=== PATIENT | female | born 1930 | race Caucasian/White ===

== ENCOUNTER → 2016-10-07 | Outpatient (REF) | payer MEDICARE, MEDICAID ==
[~2016-10-07] MED LIST: /FENO48TA OR; /PANT40TA OR; /SUCR1TA OR; /WARF5TA OR; ALTA5CAP OR; AMLO10TA OR; ASPI81TA PO; ATIV1TAB10 PO; BISA5TA OR; BISA5TAB7 PO; BISO10TA2 OR; BISO5TAB5 PO; COUM1TAB14 PO; CRES40TA OR; CRES40TA PO; DEMA20TA6 PO; DRIS50002 PO; FENO48TA2 PO; FOLI1TAB OR; FOLI1TAB2 PO; FURO40TA2 OR; FURO40TA2 PO; GLIM1TAB OR; GLIM4TAB PO; INSUHUMDS SC; INSULANT SC; INSULIN LANTUS SC; INVO100T PO; JANU100T PO; LASI20TA OR; LOPR100T OR; MISC; MORP1SOL SL; NITR0.4S SL; NITR4TASL SL; NYSTATIN POWDER TOP; OMEP40CA2 PO; PRAD75CA3 PO; RAMI5CA PO; SENN8.6T54 PO; SLOWTAB2 PO; TRAN1.5D2 TD; TUMS500C PO; TYLE325T5 PO; VITAMIN D50000 UNT OR; ZANT150T OR
[2016-10-07 09:42] LABS: ANION GAP 11 MEQ/L (8-16); BLOOD UREA NITROGEN 23 MG/DL (7-18); CALCIUM LEVEL 9.1 MG/DL (8.8-10.2); CARBON DIOXIDE LEVEL 28 MEQ/L (21-32); CHLORIDE LEVEL 105 MEQ/L (98-107); CREATININE FOR GFR 0.59 MG/DL (0.55-1.02); GLOMERULAR FILTRATION RATE > 60.0 (>32); GLUCOSE, FASTING 144 MG/DL (83-110); POTASSIUM SERUM 4.5 MEQ/L (3.5-5.1); SODIUM LEVEL 144 MEQ/L (136-145)
[2016-10-07 09:49] LABS: INR 2.59
== END ==
LOC: SKLAB7 07:00
PROVIDERS: ATTEND Family Medicine
DX: Z51.81 Encounter for therapeutic drug level monitoring (principal); Z79.01 Long term (current) use of anticoagulants; Z86.73 Personal history of transient ischemic attack (TIA), and cerebral infarction without residual deficits

== ENCOUNTER → 2016-10-14 | Outpatient (REF) | payer MEDICARE, MEDICAID ==
[2016-10-14 09:17] LABS: INR 1.89
[2016-10-14 09:38] LABS: ANION GAP 10 MEQ/L (8-16); BLOOD UREA NITROGEN 28 MG/DL (7-18); CALCIUM LEVEL 9.3 MG/DL (8.8-10.2); CARBON DIOXIDE LEVEL 29 MEQ/L (21-32); CHLORIDE LEVEL 105 MEQ/L (98-107); CREATININE FOR GFR 0.66 MG/DL (0.55-1.02); GLOMERULAR FILTRATION RATE > 60.0 (>32); GLUCOSE, FASTING 177 MG/DL (83-110); POTASSIUM SERUM 4.7 MEQ/L (3.5-5.1); SODIUM LEVEL 144 MEQ/L (136-145)
== END ==
LOC: SKLAB7 07:00
PROVIDERS: ATTEND Family Medicine
DX: Z51.81 Encounter for therapeutic drug level monitoring (principal); Z79.01 Long term (current) use of anticoagulants; Z86.73 Personal history of transient ischemic attack (TIA), and cerebral infarction without residual deficits; E11.9 Type 2 diabetes mellitus without complications

== ENCOUNTER → 2016-10-21 | Outpatient (REF) | payer MEDICARE, MEDICAID ==
[2016-10-21 08:49] LABS: INR 2.23
[2016-10-21 09:43] LABS: ANION GAP 9 MEQ/L (8-16); BLOOD UREA NITROGEN 24 MG/DL (7-18); CALCIUM LEVEL 9.1 MG/DL (8.8-10.2); CARBON DIOXIDE LEVEL 31 MEQ/L (21-32); CHLORIDE LEVEL 101 MEQ/L (98-107); CREATININE FOR GFR 0.65 MG/DL (0.55-1.02); GLOMERULAR FILTRATION RATE > 60.0 (>32); GLUCOSE, FASTING 166 MG/DL (83-110); POTASSIUM SERUM 4.6 MEQ/L (3.5-5.1); SODIUM LEVEL 141 MEQ/L (136-145)
== END ==
LOC: SKLAB7 07:00
PROVIDERS: ATTEND Family Medicine
DX: Z51.81 Encounter for therapeutic drug level monitoring (principal); Z79.01 Long term (current) use of anticoagulants; Z86.73 Personal history of transient ischemic attack (TIA), and cerebral infarction without residual deficits; I10 Essential (primary) hypertension

== ENCOUNTER → 2016-10-28 | Outpatient (REF) | payer MEDICARE, MEDICAID ==
[2016-10-28 08:50] LABS: INR 2.16
[2016-10-28 08:59] LABS: ANION GAP 11 MEQ/L (8-16); BLOOD UREA NITROGEN 23 MG/DL (7-18); CALCIUM LEVEL 9.1 MG/DL (8.8-10.2); CARBON DIOXIDE LEVEL 29 MEQ/L (21-32); CHLORIDE LEVEL 103 MEQ/L (98-107); CREATININE FOR GFR 0.67 MG/DL (0.55-1.02); GLOMERULAR FILTRATION RATE > 60.0 (>32); GLUCOSE, FASTING 207 MG/DL (83-110); POTASSIUM SERUM 4.2 MEQ/L (3.5-5.1); SODIUM LEVEL 143 MEQ/L (136-145)
== END ==
LOC: SKLAB7 07:00
PROVIDERS: ATTEND Family Medicine
DX: Z51.81 Encounter for therapeutic drug level monitoring (principal); Z79.01 Long term (current) use of anticoagulants; I48.91 Unspecified atrial fibrillation

== ENCOUNTER → 2016-11-04 | Outpatient (REF) | payer MEDICARE, MEDICAID ==
[2016-11-04 08:44] LABS: INR 2.52
== END ==
LOC: SKLAB7 09:27
PROVIDERS: ATTEND Family Medicine
DX: Z51.81 Encounter for therapeutic drug level monitoring (principal); Z79.01 Long term (current) use of anticoagulants; Z86.73 Personal history of transient ischemic attack (TIA), and cerebral infarction without residual deficits

== ENCOUNTER → 2016-11-11 | Outpatient (REF) | payer MEDICARE, MEDICAID ==
[2016-11-11 08:13] LABS: INR 2.47
== END | disposition home or self-care (01) ==
LOC: SKLAB7 08:00
PROVIDERS: ATTEND Family Medicine
DX: Z51.81 Encounter for therapeutic drug level monitoring (principal); Z79.01 Long term (current) use of anticoagulants

== ENCOUNTER → 2016-11-18 | Outpatient (REF) | payer MEDICARE, MEDICAID ==
[2016-11-18 09:37] LABS: INR 2.66
[2016-11-18 10:03] LABS: ANION GAP 12 MEQ/L (8-16); BLOOD UREA NITROGEN 21 MG/DL (7-18); CALCIUM LEVEL 9.2 MG/DL (8.8-10.2); CARBON DIOXIDE LEVEL 28 MEQ/L (21-32); CHLORIDE LEVEL 103 MEQ/L (98-107); GLOMERULAR FILTRATION RATE > 60.0 (>32); GLUCOSE, FASTING 239 MG/DL (83-110); POTASSIUM SERUM 4.3 MEQ/L (3.5-5.1); SODIUM LEVEL 143 MEQ/L (136-145)
== END ==
LOC: SKLAB7 08:00
PROVIDERS: ATTEND Family Medicine
DX: Z51.81 Encounter for therapeutic drug level monitoring (principal); Z79.01 Long term (current) use of anticoagulants; E11.9 Type 2 diabetes mellitus without complications; I10 Essential (primary) hypertension; Z86.73 Personal history of transient ischemic attack (TIA), and cerebral infarction without residual deficits

== ENCOUNTER → 2016-11-25 | Outpatient (REF) | payer MEDICARE, MEDICAID ==
[2016-11-25 08:26] LABS: INR 2.6
== END ==
LOC: SKLAB7 14:08
PROVIDERS: ATTEND Family Medicine
DX: Z51.81 Encounter for therapeutic drug level monitoring (principal); Z79.01 Long term (current) use of anticoagulants; Z86.73 Personal history of transient ischemic attack (TIA), and cerebral infarction without residual deficits

== ENCOUNTER → 2016-12-02 | Outpatient (REF) | payer MEDICARE, MEDICAID ==
[2016-12-02 09:29] LABS: INR 2.77
== END ==
LOC: SKLAB7 10:07
PROVIDERS: ATTEND Family Medicine
DX: Z51.81 Encounter for therapeutic drug level monitoring (principal); Z79.01 Long term (current) use of anticoagulants; Z86.73 Personal history of transient ischemic attack (TIA), and cerebral infarction without residual deficits

== ENCOUNTER → 2016-12-09 | Outpatient (REF) | payer MEDICARE, MEDICAID ==
[2016-12-09 08:21] LABS: INR 3.05
== END ==
LOC: SKLAB7 08:00
PROVIDERS: ATTEND Family Medicine
DX: Z51.81 Encounter for therapeutic drug level monitoring (principal); Z79.01 Long term (current) use of anticoagulants; Z86.73 Personal history of transient ischemic attack (TIA), and cerebral infarction without residual deficits

== ENCOUNTER → 2016-12-16 | Outpatient (REF) | payer MEDICARE, MEDICAID ==
[2016-12-16 09:05] LABS: INR 3.07
== END ==
LOC: SKLAB7 07:00
PROVIDERS: ATTEND Family Medicine
DX: Z51.81 Encounter for therapeutic drug level monitoring (principal); Z79.01 Long term (current) use of anticoagulants; I48.91 Unspecified atrial fibrillation

== ENCOUNTER → 2016-12-23 | Outpatient (REF) | payer MEDICARE, MEDICAID ==
[2016-12-23 09:45] LABS: INR 2.92
== END ==
LOC: SKLAB7 10:09
PROVIDERS: ATTEND Family Medicine
DX: Z51.81 Encounter for therapeutic drug level monitoring (principal); Z79.01 Long term (current) use of anticoagulants; Z86.73 Personal history of transient ischemic attack (TIA), and cerebral infarction without residual deficits

== ENCOUNTER → 2016-12-30 | Outpatient (REF) | payer MEDICARE, MEDICAID ==
[2016-12-30 09:21] LABS: INR 2.49
== END ==
LOC: SKLAB7 09:28
PROVIDERS: ATTEND Family Medicine
DX: Z51.81 Encounter for therapeutic drug level monitoring (principal); Z79.01 Long term (current) use of anticoagulants; Z86.73 Personal history of transient ischemic attack (TIA), and cerebral infarction without residual deficits

== ENCOUNTER → 2017-01-06 | Outpatient (REF) | payer MEDICARE, MEDICAID | LOC: SKLAB7 07:00 | PROVIDERS: ATTEND Family Medicine | DX: Z51.81 Encounter for therapeutic drug level monitoring (principal); Z79.01 Long term (current) use of anticoagulants; Z86.73 Personal history of transient ischemic attack (TIA), and cerebral infarction without residual deficits ==

== ENCOUNTER → 2017-01-13 | Outpatient (REF) | payer MEDICARE, MEDICAID ==
[2017-01-13 09:35] LABS: INR 2.04
== END ==
LOC: SKLAB7 08:00
PROVIDERS: ATTEND Family Medicine
DX: Z51.81 Encounter for therapeutic drug level monitoring (principal); Z79.01 Long term (current) use of anticoagulants; Z86.73 Personal history of transient ischemic attack (TIA), and cerebral infarction without residual deficits

== ENCOUNTER → 2017-01-20 | Outpatient (REF) | payer MEDICARE, MEDICAID ==
[2017-01-20 08:27] LABS: INR 1.84
== END ==
LOC: SKLAB7 07:00
PROVIDERS: ATTEND Family Medicine
DX: Z51.81 Encounter for therapeutic drug level monitoring (principal); Z79.01 Long term (current) use of anticoagulants; I48.91 Unspecified atrial fibrillation

== ENCOUNTER → 2017-01-27 | Outpatient (REF) | payer MEDICARE, MEDICAID ==
[2017-01-27 08:39] LABS: INR 1.86
== END ==
LOC: SKLAB7 07:00
PROVIDERS: ATTEND Family Medicine
DX: Z51.81 Encounter for therapeutic drug level monitoring (principal); Z79.01 Long term (current) use of anticoagulants; Z86.73 Personal history of transient ischemic attack (TIA), and cerebral infarction without residual deficits

== ENCOUNTER → 2017-02-10 | Outpatient (REF) | payer MEDICARE, MEDICAID ==
[2017-02-10 09:07] LABS: BASO % 0.5 % (0.0-1.0); EOS # 0.2 K/mm3 (0.0-0.50); EOS % 4.4 % (0.0-3.0); LARGE UNSTAINED CELL # 0.1 K/mm3 (0.0-0.4); LARGE UNSTAINED CELL % 1.3 % (0.0-4.0); LYMPH # 1.2 K/mm3 (1.5-4.5); LYMPH % 22.1 % (24.0-44.0); MEAN CORPUSCULAR HEMOGLOBIN 31.1 pg (27.0-33.0); MEAN CORPUSCULAR HGB CONC 32.8 g/dl (32.0-36.5); MEAN CORPUSCULAR VOLUME 94.7 fl (80.0-96.0); MONO # 0.3 K/mm3 (0.0-0.8); MONO % 4.6 % (0.0-5.0); NEUTROPHILS # 3.7 K/mm3 (1.8-7.7); NEUTROPHILS % 67.1 % (36.0-66.0); PLATELET COUNT, AUTOMATED 256 k/mm3 (150-450); RED CELL DISTRIBUTION WIDTH 14.3 % (11.5-14.5); WHITE BLOOD COUNT 5.5 K/mm3 (4.0-10.0)
[2017-02-10 09:22] LABS: INR 2.14
[2017-02-10 09:24] LABS: FOLATE 13.3 NG/ML (>5.4)
[2017-02-10 09:32] LABS: ALT/SGPT 37 U/L (12-78); ANION GAP 9 MEQ/L (8-16); BLOOD UREA NITROGEN 24 MG/DL (7-18); CALCIUM LEVEL 8.8 MG/DL (8.8-10.2); CARBON DIOXIDE LEVEL 29 MEQ/L (21-32); CHLORIDE LEVEL 104 MEQ/L (98-107); CHOLESTEROL LEVEL 130 MG/DL (<200); CREATININE FOR GFR 0.66 MG/DL (0.55-1.02); GLOMERULAR FILTRATION RATE > 60.0 (>32); GLUCOSE, FASTING 169 MG/DL (83-110); MAGNESIUM LEVEL 1.7 MG/DL (1.8-2.4); POTASSIUM SERUM 4.4 MEQ/L (3.5-5.1); SODIUM LEVEL 142 MEQ/L (136-145); TRIGLYCERIDES LEVEL 287 MG/DL (<150)
== END ==
LOC: SKLAB7 08:00
PROVIDERS: ATTEND Family Medicine
DX: E11.9 Type 2 diabetes mellitus without complications (principal); E03.9 Hypothyroidism, unspecified; Z79.01 Long term (current) use of anticoagulants

== ENCOUNTER → 2017-02-14 | Outpatient (REF) | payer MEDICARE, MEDICAID | LOC: SKLAB7 22:41 | PROVIDERS: ATTEND Family Medicine | DX: R41.82 Altered mental status, unspecified (principal) ==

== ENCOUNTER → 2017-02-24 | Outpatient (REF) | payer MEDICARE, MEDICAID ==
[2017-02-24 09:41] LABS: INR 2.04
== END ==
LOC: SKLAB7 07:00
PROVIDERS: ATTEND Family Medicine
DX: I48.91 Unspecified atrial fibrillation (principal)

== ENCOUNTER → 2017-03-10 | Outpatient (REF) | payer MEDICARE, MEDICAID ==
[2017-03-10 10:01] LABS: INR 2.27
== END ==
LOC: SKLAB7 08:00
PROVIDERS: ATTEND Family Medicine
DX: Z51.81 Encounter for therapeutic drug level monitoring (principal); Z79.01 Long term (current) use of anticoagulants; Z86.73 Personal history of transient ischemic attack (TIA), and cerebral infarction without residual deficits

== ENCOUNTER → 2017-03-24 | Outpatient (REF) | payer MEDICARE, MEDICAID ==
[2017-03-24 09:13] LABS: INR 1.33
== END ==
LOC: SKLAB7 08:00
PROVIDERS: ATTEND Family Medicine
DX: Z51.81 Encounter for therapeutic drug level monitoring (principal); Z79.01 Long term (current) use of anticoagulants; Z86.73 Personal history of transient ischemic attack (TIA), and cerebral infarction without residual deficits

== ENCOUNTER → 2017-03-30 | Outpatient (REF) | payer MEDICARE, MEDICAID ==
[~2017-03-30] MED LIST changes: -FOLI1TAB2 PO; +FOLI1TAB4 PO
== END ==
LOC: SKLAB3 09:26
PROVIDERS: ATTEND Family Medicine
DX: I63.9 Cerebral infarction, unspecified (principal)

== ENCOUNTER → 2017-03-31 | Outpatient (REF) | payer MEDICARE, MEDICAID ==
[2017-03-31 08:26] LABS: INR 1.35
== END ==
LOC: SKLAB7 07:00
PROVIDERS: ATTEND Family Medicine
DX: Z51.81 Encounter for therapeutic drug level monitoring (principal); Z79.01 Long term (current) use of anticoagulants; Z86.73 Personal history of transient ischemic attack (TIA), and cerebral infarction without residual deficits

== ENCOUNTER → 2017-04-07 | Outpatient (REF) | payer MEDICARE, MEDICAID ==
[2017-04-07 10:00] LABS: INR 1.31
== END ==
LOC: SKLAB7 11:53
PROVIDERS: ATTEND Family Medicine
DX: Z51.81 Encounter for therapeutic drug level monitoring (principal); Z79.01 Long term (current) use of anticoagulants; I48.91 Unspecified atrial fibrillation

== ENCOUNTER → 2017-04-21 | Outpatient (REF) | payer MEDICARE, MEDICAID ==
[2017-04-21 08:20] LABS: INR 1.37
== END ==
LOC: SKLAB7 07:00
PROVIDERS: ATTEND Family Medicine
DX: Z51.81 Encounter for therapeutic drug level monitoring (principal); Z86.73 Personal history of transient ischemic attack (TIA), and cerebral infarction without residual deficits; Z79.899 Other long term (current) drug therapy

== ENCOUNTER → 2017-05-03 | Outpatient (REF) | payer MEDICARE, MEDICAID | LOC: SKLAB7 09:49 | PROVIDERS: ATTEND Family Medicine | DX: Z86.14 Personal history of Methicillin resistant Staphylococcus aureus infection (principal) ==

== ENCOUNTER → 2017-05-05 | Outpatient (REF) | payer MEDICARE, MEDICAID ==
[2017-05-05 08:42] LABS: INR 1.85
== END ==
LOC: SKLAB7 14:10
PROVIDERS: ATTEND Family Medicine
DX: Z51.81 Encounter for therapeutic drug level monitoring (principal); Z79.01 Long term (current) use of anticoagulants; Z86.73 Personal history of transient ischemic attack (TIA), and cerebral infarction without residual deficits

== ENCOUNTER → 2017-05-19 | Outpatient (REF) | payer MEDICARE, MEDICAID ==
[2017-05-19 09:21] LABS: ANION GAP 7 MEQ/L (8-16); BLOOD UREA NITROGEN 25 MG/DL (7-18); CALCIUM LEVEL 9.1 MG/DL (8.8-10.2); CARBON DIOXIDE LEVEL 29 MEQ/L (21-32); CHLORIDE LEVEL 106 MEQ/L (98-107); CREATININE FOR GFR 0.67 MG/DL (0.55-1.02); GLOMERULAR FILTRATION RATE > 60.0 (>32); GLUCOSE, FASTING 190 MG/DL (83-110); INR 1.89; MAGNESIUM LEVEL 1.6 MG/DL (1.8-2.4); POTASSIUM SERUM 4.1 MEQ/L (3.5-5.1); SODIUM LEVEL 142 MEQ/L (136-145)
== END ==
LOC: SKLAB7 08:21
PROVIDERS: ATTEND Family Medicine
DX: E11.9 Type 2 diabetes mellitus without complications (principal); Z86.73 Personal history of transient ischemic attack (TIA), and cerebral infarction without residual deficits; Z86.14 Personal history of Methicillin resistant Staphylococcus aureus infection

== ENCOUNTER → 2017-05-27 | Outpatient (REF) | payer MEDICARE, MEDICAID | LOC: SKLAB7 14:33 | PROVIDERS: ATTEND Family Medicine | DX: Z86.14 Personal history of Methicillin resistant Staphylococcus aureus infection (principal) ==

== ENCOUNTER → 2017-06-02 | Outpatient (REF) | payer MEDICARE, MEDICAID ==
[2017-06-02 08:31] LABS: INR 1.95
== END ==
LOC: SKLAB7 14:40
PROVIDERS: ATTEND Family Medicine
DX: Z51.81 Encounter for therapeutic drug level monitoring (principal); Z79.01 Long term (current) use of anticoagulants; Z86.73 Personal history of transient ischemic attack (TIA), and cerebral infarction without residual deficits

== ENCOUNTER → 2017-06-16 | Outpatient (REF) | payer MEDICARE, MEDICAID ==
[2017-06-16 10:00] LABS: INR 1.92
== END ==
LOC: SKLAB7 07:00
PROVIDERS: ATTEND Family Medicine
DX: Z86.73 Personal history of transient ischemic attack (TIA), and cerebral infarction without residual deficits (principal)

== ENCOUNTER → 2017-06-30 | Outpatient (REF) | payer MEDICARE, MEDICAID ==
[2017-06-30 08:29] LABS: INR 1.86
== END ==
LOC: SKLAB7 11:38
PROVIDERS: ATTEND Family Medicine
DX: Z79.01 Long term (current) use of anticoagulants (principal)

== ENCOUNTER → 2017-07-14 | Outpatient (REF) | payer MEDICARE, MEDICAID ==
[2017-07-14 10:00] LABS: INR 1.91
== END ==
LOC: SKLAB7 14:13
PROVIDERS: ATTEND Family Medicine
DX: Z51.81 Encounter for therapeutic drug level monitoring (principal); Z79.01 Long term (current) use of anticoagulants; Z86.73 Personal history of transient ischemic attack (TIA), and cerebral infarction without residual deficits

== ENCOUNTER → 2017-07-28 | Outpatient (REF) | payer MEDICARE, MEDICAID ==
[2017-07-28 15:20] LABS: INR 1.94
== END ==
LOC: SKLAB7 15:12
PROVIDERS: ATTEND Family Medicine
DX: Z51.81 Encounter for therapeutic drug level monitoring (principal); Z79.01 Long term (current) use of anticoagulants; Z86.73 Personal history of transient ischemic attack (TIA), and cerebral infarction without residual deficits

== ENCOUNTER → 2017-08-11 | Outpatient (REF) | payer MEDICARE, MEDICAID ==
[2017-08-11 11:44] LABS: INR 2.15
== END ==
LOC: SKLAB7 07:00
PROVIDERS: ATTEND Family Medicine
DX: Z86.73 Personal history of transient ischemic attack (TIA), and cerebral infarction without residual deficits (principal)

== ENCOUNTER → 2017-08-26 | Outpatient (REF) | payer MEDICARE, MEDICAID ==
[2017-08-26 07:28] LABS: MEAN CORPUSCULAR HEMOGLOBIN 31.3 pg (27.0-33.0); MEAN CORPUSCULAR HGB CONC 32.4 g/dl (32.0-36.5); MEAN CORPUSCULAR VOLUME 96.6 fl (80.0-96.0); PLATELET COUNT, AUTOMATED 273 10^3/uL (150-450); RED CELL DISTRIBUTION WIDTH 13.8 % (11.5-14.5); WHITE BLOOD COUNT 6.2 10^3/uL (4.0-10.0)
[2017-08-26 07:40] LABS: INR 2.21
[2017-08-26 07:58] LABS: ALT/SGPT 24 U/L (12-78); ANION GAP 7 MEQ/L (8-16); BLOOD UREA NITROGEN 22 MG/DL (7-18); CALCIUM LEVEL 8.9 MG/DL (8.8-10.2); CARBON DIOXIDE LEVEL 29 MEQ/L (21-32); CHLORIDE LEVEL 106 MEQ/L (98-107); CREATININE FOR GFR 0.61 MG/DL (0.55-1.02); GLOMERULAR FILTRATION RATE > 60.0 (>32); GLUCOSE, FASTING 129 MG/DL (83-110); MAGNESIUM LEVEL 1.9 MG/DL (1.8-2.4); POTASSIUM SERUM 4.2 MEQ/L (3.5-5.1); SODIUM LEVEL 142 MEQ/L (136-145)
== END ==
LOC: SKLAB7 07:00
PROVIDERS: ATTEND Family Medicine
DX: I63.9 Cerebral infarction, unspecified (principal); E11.9 Type 2 diabetes mellitus without complications

== ENCOUNTER → 2017-09-09 | Outpatient (REF) | payer MEDICARE, MEDICAID ==
[2017-09-09 08:56] LABS: INR 1.94
== END ==
LOC: SKLAB7 08:02
PROVIDERS: ATTEND Family Medicine
DX: I63.9 Cerebral infarction, unspecified (principal)

== ENCOUNTER → 2017-09-16 | Outpatient (REF) | payer MEDICARE, MEDICAID ==
[2017-09-16 08:08] LABS: INR 2.3
== END ==
LOC: SKLAB7 07:00
PROVIDERS: ATTEND Family Medicine
DX: I48.91 Unspecified atrial fibrillation (principal)

== ENCOUNTER → 2017-09-22 | Outpatient (REF) | payer MEDICARE, MEDICAID ==
[2017-09-22 09:33] LABS: INR 1.72
== END ==
LOC: SKLAB7 07:00
PROVIDERS: ATTEND Family Medicine
DX: Z51.81 Encounter for therapeutic drug level monitoring (principal); Z79.01 Long term (current) use of anticoagulants

== ENCOUNTER → 2017-09-28 | Outpatient (REF) | payer MEDICARE, MEDICAID | LOC: SKLAB7 22:16 | DX: R41.82 Altered mental status, unspecified (principal); R09.81 Nasal congestion ==

== ENCOUNTER → 2017-09-28 | Outpatient (REF) | payer MEDICARE, MEDICAID ==
[2017-09-28 20:34] LABS: MEAN CORPUSCULAR HEMOGLOBIN 31.8 pg (27.0-33.0); MEAN CORPUSCULAR HGB CONC 31.6 g/dl (32.0-36.5); MEAN CORPUSCULAR VOLUME 100.5 fl (80.0-96.0); PLATELET COUNT, AUTOMATED 275 10^3/uL (150-450); RED CELL DISTRIBUTION WIDTH 13.4 % (11.5-14.5); WHITE BLOOD COUNT 13.2 10^3/uL (4.0-10.0)
[2017-09-28 22:30] LABS: BLOOD UREA NITROGEN 30 MG/DL (7-18); CALCIUM LEVEL 8.7 MG/DL (8.8-10.2); CHLORIDE LEVEL 102 MEQ/L (98-107); CREATININE FOR GFR 0.85 MG/DL (0.55-1.02); GLOMERULAR FILTRATION RATE > 60.0 (>32); GLUCOSE, FASTING 295 MG/DL (83-110); SODIUM LEVEL 139 MEQ/L (136-145)
[2017-09-28 23:23] LABS: ANION GAP 10 MEQ/L (8-16); CARBON DIOXIDE LEVEL 27 MEQ/L (21-32)
[2017-09-28 23:28] LABS: POTASSIUM SERUM 5.2 MEQ/L (3.5-5.1)
== END ==
LOC: SKLAB7 19:48
DX: R09.81 Nasal congestion (principal); R41.82 Altered mental status, unspecified
CPT/HCPCS: 71010

== ENCOUNTER → 2017-10-06 | Outpatient (REF) | payer MEDICARE, MEDICAID ==
[2017-10-06 09:37] LABS: INR 2.23; PROTHROMBIN TIME 25.6 SECONDS (12.4-14.5)
== END ==
LOC: SKLAB7 13:39
DX: Z51.81 Encounter for therapeutic drug level monitoring (principal); Z79.01 Long term (current) use of anticoagulants; Z86.73 Personal history of transient ischemic attack (TIA), and cerebral infarction without residual deficits
CPT/HCPCS: 36415

== ENCOUNTER → 2017-10-13 | Outpatient (REF) | payer MEDICARE, MEDICAID ==
[2017-10-13 09:58] LABS: INR 3.05; PROTHROMBIN TIME 32.9 SECONDS (12.4-14.5)
== END ==
LOC: SKLAB7 07:00
DX: Z51.81 Encounter for therapeutic drug level monitoring (principal); Z79.01 Long term (current) use of anticoagulants
CPT/HCPCS: 36415

== ENCOUNTER → 2017-10-20 | Outpatient (REF) | payer MEDICARE, MEDICAID ==
[2017-10-20 10:19] LABS: INR 2.97; PROTHROMBIN TIME 32.2 SECONDS (12.4-14.5)
== END ==
LOC: SKLAB7 07:00
DX: E11.9 Type 2 diabetes mellitus without complications (principal); I63.9 Cerebral infarction, unspecified
CPT/HCPCS: 36415

== ENCOUNTER → 2017-10-27 | Outpatient (REF) | payer MEDICARE, MEDICAID ==
[2017-10-27 11:19] LABS: PROTHROMBIN TIME 37.7 SECONDS (12.4-14.5)
== END ==
LOC: SKLAB7 07:00
DX: Z79.01 Long term (current) use of anticoagulants (principal)
CPT/HCPCS: 85610

== ENCOUNTER → 2017-11-03 | Outpatient (REF) | payer MEDICARE, MEDICAID ==
[2017-11-03 08:53] LABS: INR 2.11; PROTHROMBIN TIME 24.4 SECONDS (12.4-14.5)
== END ==
LOC: SKLAB7 08:00
DX: I48.91 Unspecified atrial fibrillation (principal)
CPT/HCPCS: 36415

== ENCOUNTER → 2017-11-10 | Outpatient (REF) | payer MEDICARE, MEDICAID ==
[2017-11-10 09:01] LABS: HEMOGLOBIN 13.3 g/dl (12.0-16.0); MEAN CORPUSCULAR HEMOGLOBIN 31.7 pg (27.0-33.0); MEAN CORPUSCULAR HGB CONC 32.4 g/dl (32.0-36.5); MEAN CORPUSCULAR VOLUME 97.6 fl (80.0-96.0); PLATELET COUNT, AUTOMATED 230 10^3/uL (150-450); RED CELL DISTRIBUTION WIDTH 13.3 % (11.5-14.5); WHITE BLOOD COUNT 6.6 10^3/uL (4.0-10.0)
[2017-11-10 09:25] LABS: INR 2.27; PROTHROMBIN TIME 25.9 SECONDS (12.4-14.5)
[2017-11-10 09:38] LABS: ALT/SGPT 21 U/L (12-78); ANION GAP 8 MEQ/L (8-16); BLOOD UREA NITROGEN 22 MG/DL (7-18); CARBON DIOXIDE LEVEL 29 MEQ/L (21-32); CHLORIDE LEVEL 104 MEQ/L (98-107); CREATININE FOR GFR 0.65 MG/DL (0.55-1.30); GLOMERULAR FILTRATION RATE > 60.0 (>32); GLUCOSE, FASTING 164 MG/DL (70-100); MAGNESIUM LEVEL 2.1 MG/DL (1.8-2.4); SODIUM LEVEL 141 MEQ/L (136-145)
[2017-11-10 09:52] LABS: ESTIMATED AVERAGE GLUCOSE 237 MG/DL (60-110); HEMOGLOBIN A1c 9.9 %
== END ==
LOC: SKLAB7 08:00
DX: E11.9 Type 2 diabetes mellitus without complications (principal); E03.9 Hypothyroidism, unspecified; E78.5 Hyperlipidemia, unspecified; Z86.73 Personal history of transient ischemic attack (TIA), and cerebral infarction without residual deficits
CPT/HCPCS: 84460

== ENCOUNTER → 2017-11-17 | Outpatient (REF) | payer MEDICARE, MEDICAID ==
[2017-11-17 09:47] LABS: INR 2.24; PROTHROMBIN TIME 25.6 SECONDS (12.4-14.5)
== END ==
LOC: SKLAB3 06:34
DX: Z79.01 Long term (current) use of anticoagulants (principal)
CPT/HCPCS: 36415

== ENCOUNTER → 2017-11-24 | Outpatient (REF) | payer MEDICARE, MEDICAID ==
[2017-11-24 10:22] LABS: INR 1.95; PROTHROMBIN TIME 22.9 SECONDS (12.4-14.5)
== END ==
LOC: SKLAB7 07:00
DX: Z79.01 Long term (current) use of anticoagulants (principal)
CPT/HCPCS: 36415

== ENCOUNTER → 2017-12-01 | Outpatient (REF) | payer MEDICARE, MEDICAID ==
[2017-12-01 08:49] LABS: INR 2.01; PROTHROMBIN TIME 23.5 SECONDS (12.4-14.5)
== END ==
LOC: SKLAB7 07:00
DX: Z79.01 Long term (current) use of anticoagulants (principal)
CPT/HCPCS: 36415

== ENCOUNTER → 2017-12-15 | Outpatient (REF) | payer MEDICARE, MEDICAID ==
[2017-12-15 08:46] LABS: INR 2.61
== END ==
LOC: SKLAB7 07:00
DX: Z79.01 Long term (current) use of anticoagulants (principal)
CPT/HCPCS: 36415

== ENCOUNTER → 2017-12-22 | Outpatient (REF) | payer MEDICARE, MEDICAID ==
[2017-12-22 10:53] LABS: INR 2.42; PROTHROMBIN TIME 27.3 SECONDS (12.4-14.5)
== END ==
LOC: SKLAB7 09:47
DX: I63.9 Cerebral infarction, unspecified (principal)
CPT/HCPCS: 85610

== ENCOUNTER → 2017-12-29 | Outpatient (REF) | payer MEDICARE, MEDICAID ==
[2017-12-29 09:55] LABS: INR 2.08; PROTHROMBIN TIME 24.1 SECONDS (12.4-14.5)
== END ==
LOC: SKLAB7 08:52
DX: I63.9 Cerebral infarction, unspecified (principal)
CPT/HCPCS: 36415

== ENCOUNTER → 2018-02-02 | Outpatient (REF) | payer MEDICARE, MEDICAID ==
[2018-02-02 07:51] LABS: INR 2.69; PROTHROMBIN TIME 29.7 SECONDS (12.4-14.5)
== END ==
LOC: SKLAB7 07:00
DX: I63.9 Cerebral infarction, unspecified (principal)
CPT/HCPCS: 36415

== ENCOUNTER → 2018-02-09 | Outpatient (REF) | payer MEDICARE, MEDICAID ==
[2018-02-09 08:37] LABS: INR 2.35; PROTHROMBIN TIME 26.6 SECONDS (12.4-14.5)
== END ==
LOC: SKLAB7 07:00
DX: I63.9 Cerebral infarction, unspecified (principal)
CPT/HCPCS: 36415

== ENCOUNTER → 2018-02-23 | Outpatient (REF) | payer MEDICARE, MEDICAID ==
[2018-02-23 09:16] LABS: INR 2.35; PROTHROMBIN TIME 26.7 SECONDS (12.4-14.5)
[2018-02-23 09:23] LABS: ANION GAP 9 MEQ/L (8-16); BLOOD UREA NITROGEN 22 MG/DL (7-18); CALCIUM LEVEL 8.7 MG/DL (8.8-10.2); CARBON DIOXIDE LEVEL 26 MEQ/L (21-32); CHLORIDE LEVEL 107 MEQ/L (98-107); CHOLESTEROL LEVEL 249 MG/DL (<200); CHOLESTEROL RISK RATIO 7.781 (<5); CREATININE FOR GFR 0.64 MG/DL (0.55-1.30); GLOMERULAR FILTRATION RATE > 60.0 (>32); GLUCOSE, FASTING 126 MG/DL (70-100); HDL CHOLESTEROL 32 MG/DL (>40); LDL CHOLESTEROL 158.6 MG/DL (<100); MAGNESIUM LEVEL 2.1 MG/DL (1.8-2.4); NON-HDL-C 217 MG/DL; SODIUM LEVEL 142 MEQ/L (136-145); TRIGLYCERIDES LEVEL 292 MG/DL (<150)
[2018-02-23 09:30] LABS: FOLATE 7.2 NG/ML (>5.4)
== END ==
LOC: SKLAB7 07:00
DX: Z79.01 Long term (current) use of anticoagulants (principal); I67.9 Cerebrovascular disease, unspecified; E78.5 Hyperlipidemia, unspecified
CPT/HCPCS: 82746

== ENCOUNTER → 2018-03-09 | Outpatient (REF) | payer MEDICARE, MEDICAID ==
[2018-03-09 08:11] LABS: INR 2.45; PROTHROMBIN TIME 27.5 SECONDS (12.4-14.5)
== END ==
LOC: SKLAB7 07:00
DX: I48.91 Unspecified atrial fibrillation (principal)
CPT/HCPCS: 36415

== ENCOUNTER → 2018-04-06 | Outpatient (REF) | payer MEDICARE, MEDICAID ==
[2018-04-06 08:14] LABS: INR 2.66; PROTHROMBIN TIME 28.9 SECONDS (12.1-14.4)
== END ==
LOC: SKLAB7 07:00
DX: I48.91 Unspecified atrial fibrillation (principal); I63.9 Cerebral infarction, unspecified
CPT/HCPCS: 36415

== ENCOUNTER → 2018-04-10 | Outpatient (REF) | payer MEDICARE, MEDICAID ==
[2018-04-10 09:11] LABS: CHOLESTEROL LEVEL 268 MG/DL (<200); CHOLESTEROL RISK RATIO 7.657 (<5); HDL CHOLESTEROL 35 MG/DL (>40); LDL CHOLESTEROL 156.2 MG/DL (<100); NON-HDL-C 233 MG/DL; TRIGLYCERIDES LEVEL 384 MG/DL (<150)
[2018-04-10 09:28] LABS: ESTIMATED AVERAGE GLUCOSE 177 MG/DL (60-110); HEMOGLOBIN A1c 7.8 %
== END ==
LOC: SKLAB7 14:15
DX: E78.5 Hyperlipidemia, unspecified (principal); Z79.899 Other long term (current) drug therapy
CPT/HCPCS: 83036

== ENCOUNTER → 2018-04-20 | Outpatient (REF) | payer MEDICARE, MEDICAID ==
[2018-04-20 09:11] LABS: INR 2.95; PROTHROMBIN TIME 31.4 SECONDS (12.1-14.4)
== END ==
LOC: SKLAB7 08:00
DX: I63.9 Cerebral infarction, unspecified (principal)
CPT/HCPCS: 36415

== ENCOUNTER → 2018-05-04 | Outpatient (REF) | payer MEDICARE, MEDICAID ==
[2018-05-04 09:23] LABS: INR 3.56; PROTHROMBIN TIME 36.4 SECONDS (12.1-14.4)
== END ==
LOC: SKLAB7 08:00
DX: I63.9 Cerebral infarction, unspecified (principal)
CPT/HCPCS: 36415

== ENCOUNTER → 2018-05-05 | Outpatient (REF) | payer MEDICARE, MEDICAID | LOC: SKLAB7 07:06 | DX: Z79.01 Long term (current) use of anticoagulants (principal) | CPT/HCPCS: 36415 ==

== ENCOUNTER → 2018-05-18 | Outpatient (REF) | payer MEDICARE, MEDICAID ==
[2018-05-18 09:05] LABS: HEMATOCRIT 44.5 % (36.0-47.0); HEMOGLOBIN 13.9 g/dl (12.0-15.5); MEAN CORPUSCULAR HGB CONC 31.2 g/dl (32.0-36.5); MEAN CORPUSCULAR VOLUME 99.3 fl (80.0-96.0); PLATELET COUNT, AUTOMATED 259 10^3/uL (150-450); RED BLOOD COUNT 4.48 10^6/uL (4.00-5.40); RED CELL DISTRIBUTION WIDTH 13.6 % (11.5-14.5); WHITE BLOOD COUNT 6.3 10^3/uL (4.0-10.0)
[2018-05-18 09:31] LABS: ALT/SGPT 19 U/L (12-78); ANION GAP 7 MEQ/L (8-16); BLOOD UREA NITROGEN 22 MG/DL (7-18); CALCIUM LEVEL 8.9 MG/DL (8.8-10.2); CARBON DIOXIDE LEVEL 32 MEQ/L (21-32); CHLORIDE LEVEL 105 MEQ/L (98-107); CHOLESTEROL LEVEL 147 MG/DL (<200); CHOLESTEROL RISK RATIO 3.868 (<5); CREATININE FOR GFR 0.61 MG/DL (0.55-1.30); GLOMERULAR FILTRATION RATE > 60.0 (>32); GLUCOSE, FASTING 115 MG/DL (70-100); HDL CHOLESTEROL 38 MG/DL (>40); LDL CHOLESTEROL 56.4 MG/DL (<100); NON-HDL-C 109 MG/DL; POTASSIUM SERUM 4.3 MEQ/L (3.5-5.1); SODIUM LEVEL 144 MEQ/L (136-145); TRIGLYCERIDES LEVEL 263 MG/DL (<150)
[2018-05-18 09:39] LABS: INR 2.43; PROTHROMBIN TIME 26.9 SECONDS (12.1-14.4)
== END ==
LOC: SKLAB7 08:00
DX: E03.9 Hypothyroidism, unspecified (principal); I63.9 Cerebral infarction, unspecified; E11.9 Type 2 diabetes mellitus without complications
CPT/HCPCS: 84460

== ENCOUNTER → 2018-05-30 | Outpatient (REF) | payer MEDICARE, MEDICAID ==
[2018-05-31 01:58] LABS: HEMATOCRIT 37.5 % (36.0-47.0); HEMOGLOBIN 11.9 g/dl (12.0-15.5); MEAN CORPUSCULAR HEMOGLOBIN 31.5 pg (27.0-33.0); MEAN CORPUSCULAR HGB CONC 31.7 g/dl (32.0-36.5); MEAN CORPUSCULAR VOLUME 99.2 fl (80.0-96.0); PLATELET COUNT, AUTOMATED 219 10^3/uL (150-450); RED BLOOD COUNT 3.78 10^6/uL (4.00-5.40); RED CELL DISTRIBUTION WIDTH 14.5 % (11.5-14.5); WHITE BLOOD COUNT 14.9 10^3/uL (4.0-10.0)
[2018-05-31 02:10] LABS: ANION GAP 13 MEQ/L (8-16); BLOOD UREA NITROGEN 37 MG/DL (7-18); CALCIUM LEVEL 8.9 MG/DL (8.8-10.2); CARBON DIOXIDE LEVEL 23 MEQ/L (21-32); CHLORIDE LEVEL 104 MEQ/L (98-107); CREATININE FOR GFR 1.11 MG/DL (0.55-1.30); GLOMERULAR FILTRATION RATE 49.5 (>32); GLUCOSE, FASTING 280 MG/DL (70-100); POTASSIUM SERUM 4.6 MEQ/L (3.5-5.1); SODIUM LEVEL 140 MEQ/L (136-145)
== END ==
LOC: SKLAB7 21:50
DX: R50.9 Fever, unspecified (principal)
CPT/HCPCS: 80048

== ENCOUNTER → 2018-05-31 | Outpatient (REF) | payer MEDICARE, MEDICAID ==
[2018-05-31 08:44] LABS: INR 2.66; PROTHROMBIN TIME 28.9 SECONDS (12.1-14.4)
== END ==
LOC: SKLAB7 06:33
DX: R50.9 Fever, unspecified (principal); Z79.01 Long term (current) use of anticoagulants
CPT/HCPCS: 85610

== ENCOUNTER → 2018-06-06 | Outpatient (REF) | payer MEDICARE, MEDICAID ==
[2018-06-06 08:22] LABS: HEMATOCRIT 38.8 % (36.0-47.0); HEMOGLOBIN 12.3 g/dl (12.0-15.5); MEAN CORPUSCULAR HEMOGLOBIN 30.9 pg (27.0-33.0); MEAN CORPUSCULAR HGB CONC 31.7 g/dl (32.0-36.5); MEAN CORPUSCULAR VOLUME 97.5 fl (80.0-96.0); PLATELET COUNT, AUTOMATED 391 10^3/uL (150-450); RED BLOOD COUNT 3.98 10^6/uL (4.00-5.40); RED CELL DISTRIBUTION WIDTH 13.9 % (11.5-14.5); WHITE BLOOD COUNT 11.3 10^3/uL (4.0-10.0)
== END ==
LOC: SKLAB7 08:00
DX: R50.9 Fever, unspecified (principal)
CPT/HCPCS: 85027

== ENCOUNTER → 2018-06-15 | Outpatient (REF) | payer MEDICARE, MEDICAID ==
[2018-06-15 10:23] LABS: PROTHROMBIN TIME 59.6 SECONDS (12.1-14.4)
[2018-06-15 10:34] LABS: INR 6.62
== END ==
LOC: SKLAB7 07:00
DX: I63.9 Cerebral infarction, unspecified (principal)
CPT/HCPCS: 36415

== ENCOUNTER → 2018-06-16 | Outpatient (REF) | payer MEDICARE, MEDICAID ==
[2018-06-16 08:59] LABS: INR 4.41; PROTHROMBIN TIME 43.2 SECONDS (12.1-14.4)
== END ==
LOC: SKLAB7 13:45
DX: I48.91 Unspecified atrial fibrillation (principal)
CPT/HCPCS: 36415

== ENCOUNTER → 2018-06-17 | Outpatient (REF) | payer MEDICARE, MEDICAID ==
[2018-06-17 09:25] LABS: PROTHROMBIN TIME 38.4 SECONDS (12.1-14.4)
== END ==
LOC: SKLAB7 07:00
DX: I48.91 Unspecified atrial fibrillation (principal)
CPT/HCPCS: 36415

== ENCOUNTER 2018-06-18 07:00 | Outpatient (REF) | payer MEDICARE, MEDICAID ==
[2018-06-18 07:59] LABS: PROTHROMBIN TIME 29.3 SECONDS (12.1-14.4)
== END 2018-06-21 ==
LOC: SKLAB7 06-21 07:00
DX: I48.91 Unspecified atrial fibrillation (principal)
CPT/HCPCS: 36415

== ENCOUNTER → 2018-06-21 | Outpatient (REF) | payer MEDICARE, MEDICAID ==
[2018-06-21 08:29] LABS: INR 1.97; PROTHROMBIN TIME 22.8 SECONDS (12.1-14.4)
== END ==
LOC: SKLAB7 07:00
DX: I48.91 Unspecified atrial fibrillation (principal)
CPT/HCPCS: 36415

== ENCOUNTER → 2018-06-23 | Outpatient (REF) | payer MEDICARE, MEDICAID ==
[2018-06-23 07:53] LABS: INR 2.01; PROTHROMBIN TIME 23.2 SECONDS (12.1-14.4)
== END ==
LOC: SKLAB7 08:00
DX: I63.9 Cerebral infarction, unspecified (principal)
CPT/HCPCS: 36415

== ENCOUNTER → 2018-07-06 | Outpatient (REF) | payer MEDICARE, MEDICAID ==
[2018-07-06 15:11] LABS: PROTHROMBIN TIME 26.7 SECONDS (12.1-14.4)
== END ==
LOC: SKLAB7 11:28
DX: I48.91 Unspecified atrial fibrillation (principal)
CPT/HCPCS: 85610

== ENCOUNTER → 2018-07-20 | Outpatient (REF) | payer MEDICARE, MEDICAID ==
[2018-07-20 08:49] LABS: INR 1.36
== END ==
LOC: SKLAB7 07:00
DX: I63.9 Cerebral infarction, unspecified (principal)
CPT/HCPCS: 85610

== ENCOUNTER → 2018-07-25 | Outpatient (REF) | payer MEDICARE, MEDICAID ==
[2018-07-25 11:48] LABS: INR 1.44; PROTHROMBIN TIME 17.7 SECONDS (12.1-14.4)
== END ==
LOC: SKLAB7 10:50
DX: I48.91 Unspecified atrial fibrillation (principal)
CPT/HCPCS: 85610

== ENCOUNTER → 2018-07-31 | Outpatient (REF) | payer MEDICARE, MEDICAID ==
[2018-07-31 08:48] LABS: INR 1.73; PROTHROMBIN TIME 20.6 SECONDS (12.1-14.4)
== END ==
LOC: SKLAB7 07:00
DX: I48.91 Unspecified atrial fibrillation (principal)
CPT/HCPCS: 85610

== ENCOUNTER → 2018-08-02 | Outpatient (REF) | payer MEDICARE, MEDICAID ==
[2018-08-02 14:02] LABS: INR 1.66; PROTHROMBIN TIME 19.9 SECONDS (12.1-14.4)
== END ==
LOC: SKLAB7 07:26
DX: I48.91 Unspecified atrial fibrillation (principal)
CPT/HCPCS: 85610

== ENCOUNTER → 2018-08-07 | Outpatient (REF) | payer MEDICARE, MEDICAID ==
[2018-08-07 08:47] LABS: INR 1.92; PROTHROMBIN TIME 22.3 SECONDS (12.1-14.4)
== END ==
LOC: SKLAB7 08:00
DX: I48.91 Unspecified atrial fibrillation (principal)
CPT/HCPCS: 85610

== ENCOUNTER → 2018-08-17 | Outpatient (REF) | payer MEDICARE, MEDICAID ==
[2018-08-17 10:01] LABS: ANION GAP 8 MEQ/L (8-16); BLOOD UREA NITROGEN 22 MG/DL (7-18); CALCIUM LEVEL 8.8 MG/DL (8.8-10.2); CARBON DIOXIDE LEVEL 30 MEQ/L (21-32); CHLORIDE LEVEL 105 MEQ/L (98-107); CREATININE FOR GFR 0.61 MG/DL (0.55-1.30); GLOMERULAR FILTRATION RATE > 60.0 (>32); GLUCOSE, FASTING 101 MG/DL (70-100); MAGNESIUM LEVEL 2.1 MG/DL (1.8-2.4); POTASSIUM SERUM 4.1 MEQ/L (3.5-5.1); SODIUM LEVEL 143 MEQ/L (136-145)
== END ==
LOC: SKLAB7 14:08
DX: I63.9 Cerebral infarction, unspecified (principal); E11.9 Type 2 diabetes mellitus without complications
CPT/HCPCS: 83735

== ENCOUNTER → 2018-10-06 | Outpatient (REF) | payer MEDICARE, MEDICAID ==
[~2018-10-06] MED LIST changes: +ASPI81CH40 PO; -ASPI81TA PO; -DRIS50002 PO; +DRIS50003 PO; -FOLI1TAB4 PO; +FOLI1TAB5 PO; +RAMI1CAP24 PO; -RAMI5CA PO
== END ==
LOC: SKLAB7 15:10
PROVIDERS: ATTEND Family Medicine
DX: Z16.21 Resistance to vancomycin (principal)

== ENCOUNTER → 2018-11-16 | Outpatient (REF) | payer MEDICARE, MEDICAID, OTHER ==
[~2018-11-16] MED LIST changes: +FOLI1TAB11 PO; -FOLI1TAB5 PO
[2018-11-16 08:31] LABS: HEMATOCRIT 39.6 % (36.0-47.0); HEMOGLOBIN 12.8 g/dl (12.0-15.5); MEAN CORPUSCULAR HEMOGLOBIN 31.8 pg (27.0-33.0); MEAN CORPUSCULAR HGB CONC 32.3 g/dl (32.0-36.5); MEAN CORPUSCULAR VOLUME 98.5 fl (80.0-96.0); PLATELET COUNT, AUTOMATED 236 10^3/uL (150-450); RED BLOOD COUNT 4.02 10^6/uL (4.00-5.40); WHITE BLOOD COUNT 7.3 10^3/uL (4.0-10.0)
[2018-11-16 08:49] LABS: HEMOGLOBIN A1c 8.8 %
[2018-11-16 09:06] LABS: ALT/SGPT 19 U/L (12-78); BLOOD UREA NITROGEN 23 MG/DL (7-18); CALCIUM LEVEL 9.1 MG/DL (8.8-10.2); CARBON DIOXIDE LEVEL 29 MEQ/L (21-32); CHLORIDE LEVEL 103 MEQ/L (98-107); CREATININE FOR GFR 0.71 MG/DL (0.55-1.30); GLOMERULAR FILTRATION RATE > 60.0 (>32); GLUCOSE, FASTING 190 MG/DL (70-100); POTASSIUM SERUM 4.3 MEQ/L (3.5-5.1); SODIUM LEVEL 141 MEQ/L (136-145)
== END ==
LOC: SKLAB7 09:43
PROVIDERS: ATTEND Family Medicine
DX: E03.9 Hypothyroidism, unspecified (principal); I63.9 Cerebral infarction, unspecified; E11.9 Type 2 diabetes mellitus without complications; Z79.899 Other long term (current) drug therapy

== ENCOUNTER → 2019-02-06 | Outpatient (REF) | payer MEDICARE, MEDICAID, OTHER ==
[~2019-02-06] MED LIST changes: -/FENO48TA OR; -/PANT40TA OR; -/SUCR1TA OR; -/WARF5TA OR; +ASPI81CH36 PO; -ASPI81CH40 PO; +COUM1TAB17 OR; -MORP1SOL SL; +MORP20SO16 SL; -PRAD75CA3 PO; +PRAD75CA5 PO; +PROT1TAB2 OR; +SCOP1PAT2 TD; +SENN-50 PO; -SENN8.6T54 PO; +SUCR1TAB56 OR; -TRAN1.5D2 TD; +TRIC1TAB OR
[2019-02-06 08:15] LABS: BLOOD UREA NITROGEN 33 MG/DL (7-18); CALCIUM LEVEL 8.9 MG/DL (8.8-10.2); CARBON DIOXIDE LEVEL 32 MEQ/L (21-32); CHLORIDE LEVEL 109 MEQ/L (98-107); CREATININE FOR GFR 0.82 MG/DL (0.55-1.30); GLOMERULAR FILTRATION RATE > 60.0 (>32); GLUCOSE, FASTING 226 MG/DL (70-100); POTASSIUM SERUM 4.2 MEQ/L (3.5-5.1); SODIUM LEVEL 145 MEQ/L (136-145)
[2019-02-06 09:00] LABS: HEMOGLOBIN A1c 10.3 %
== END ==
LOC: SKLAB7 07:00
PROVIDERS: ATTEND Family Medicine
DX: E11.9 Type 2 diabetes mellitus without complications (principal)

== ENCOUNTER → 2019-02-15 | Outpatient (REF) | payer MEDICARE, MEDICAID, OTHER ==
[2019-02-15 09:35] LABS: CHOLESTEROL RISK RATIO 3.969 (<5); MAGNESIUM LEVEL 1.8 MG/DL (1.8-2.4)
[2019-02-15 10:18] LABS: FOLATE 5.9 NG/ML (>5.4)
== END ==
LOC: SKLAB7 08:06
PROVIDERS: ATTEND Family Medicine
DX: E11.9 Type 2 diabetes mellitus without complications (principal); E78.5 Hyperlipidemia, unspecified

== ENCOUNTER → 2019-05-17 | Outpatient (REF) | payer MEDICARE, MEDICAID, OTHER ==
[2019-05-17 08:41] LABS: HEMATOCRIT 37.3 % (36.0-47.0); HEMOGLOBIN 11.9 g/dl (12.0-15.5); MEAN CORPUSCULAR HEMOGLOBIN 32.2 pg (27.0-33.0); MEAN CORPUSCULAR HGB CONC 31.9 g/dl (32.0-36.5); MEAN CORPUSCULAR VOLUME 101.1 fl (80.0-96.0); PLATELET COUNT, AUTOMATED 271 10^3/uL (150-450); RED BLOOD COUNT 3.69 10^6/uL (4.00-5.40); WHITE BLOOD COUNT 7.1 10^3/uL (4.0-10.0)
[2019-05-17 10:28] LABS: ALT/SGPT 19 U/L (12-78); BLOOD UREA NITROGEN 22 MG/DL (7-18); CALCIUM LEVEL 9.3 MG/DL (8.8-10.2); CARBON DIOXIDE LEVEL 33 MEQ/L (21-32); CHLORIDE LEVEL 105 MEQ/L (98-107); GLOMERULAR FILTRATION RATE > 60.0 (>32); GLUCOSE, FASTING 137 MG/DL (70-100); MAGNESIUM LEVEL 2.2 MG/DL (1.8-2.4); POTASSIUM SERUM 4.4 MEQ/L (3.5-5.1); SODIUM LEVEL 143 MEQ/L (136-145)
[2019-05-17 12:14] LABS: HEMOGLOBIN A1c 8.5 %
== END ==
LOC: SKLAB7 07:00
PROVIDERS: ATTEND Family Medicine
DX: E11.9 Type 2 diabetes mellitus without complications (principal); I10 Essential (primary) hypertension

== ENCOUNTER → 2019-09-20 | Outpatient (REF) | payer MEDICARE, MEDICAID, OTHER ==
[~2019-09-20] MED LIST changes: +ASPI81CH32 PO; -ASPI81CH36 PO; +BISO5TAB14 PO; -BISO5TAB5 PO; -FENO48TA2 PO; +FENO48TA7 PO; -GLIM4TAB PO; +GLIM4TAB5 PO; -OMEP40CA2 PO; +OMEP40CA97 PO
[2019-09-20 09:29] LABS: BLOOD UREA NITROGEN 22 MG/DL (7-18); CALCIUM LEVEL 8.8 MG/DL (8.8-10.2); CARBON DIOXIDE LEVEL 30 MEQ/L (21-32); CHLORIDE LEVEL 110 MEQ/L (98-107); CREATININE FOR GFR 0.61 MG/DL (0.55-1.30); GLOMERULAR FILTRATION RATE > 60.0 (>32); GLUCOSE, FASTING 92 MG/DL (70-100); MAGNESIUM LEVEL 2.2 MG/DL (1.8-2.4); POTASSIUM SERUM 4.3 MEQ/L (3.5-5.1); SODIUM LEVEL 145 MEQ/L (136-145)
--- NOTE | 2019-09-22 14:00 | REP ---
REASON FOR EXAM: Congestion. COMPARISON: 09/28/2017, the latest prior and also portable. AP and lateral views were obtained. The lateral view is of no diagnostic value due to the technique utilized and obtained on the radiograph. The frontal view of the chest shows cardiomegaly accentuated by technique. The lung delatorre appear clear. The pleural angles are sharp. There is no change in the osseous structures. IMPRESSION:Cardiomegaly without evidence of acute cardiopulmonary disease. Other findings as described above. Electronically Signed by Kee Hodge DO 09/22/2019 03:54 P
== END ==
LOC: SKLAB7 07:00
PROVIDERS: ATTEND Family Medicine
DX: E83.42 Hypomagnesemia (principal); E11.9 Type 2 diabetes mellitus without complications

== ENCOUNTER → 2019-09-22 | Outpatient (REF) ==
[~2019-09-22] MED LIST changes: -ASPI81CH32 PO; +ASPI81CH36 PO; -BISO5TAB14 PO; +BISO5TAB9 PO; +FENO48TA13 PO; -FENO48TA7 PO; +GLIM4TAB3 PO; -GLIM4TAB5 PO
[2019-09-22 13:39] LABS: ALBUMIN 2.5 GM/DL (3.2-5.2); ALT/SGPT 13 U/L (12-78); BILIRUBIN,TOTAL 0.2 MG/DL (0.2-1.0); BLOOD UREA NITROGEN 20 MG/DL (7-18); CALCIUM LEVEL 8.3 MG/DL (8.8-10.2); CARBON DIOXIDE LEVEL 24 MEQ/L (21-32); CHLORIDE LEVEL 109 MEQ/L (98-107); CREATININE FOR GFR 0.82 MG/DL (0.55-1.30); GLOMERULAR FILTRATION RATE > 60.0 (>32); GLUCOSE, FASTING 209 MG/DL (70-100); NT-PRO BNP 2620 PG/ML (<450); POTASSIUM SERUM 4.4 MEQ/L (3.5-5.1); SODIUM LEVEL 144 MEQ/L (136-145); TOTAL PROTEIN 5.6 GM/DL (6.4-8.2)
== END ==
LOC: SKLAB7 11:40
PROVIDERS: ATTEND Family Medicine
DX: R09.89 Other specified symptoms and signs involving the circulatory and respiratory systems (principal)

== ENCOUNTER → 2019-09-27 | Outpatient (REF) | payer MEDICARE, MEDICAID ==
[2019-09-27 10:48] LABS: HEMATOCRIT 39.1 % (36.0-47.0); HEMOGLOBIN 12.1 g/dl (12.0-15.5); MEAN CORPUSCULAR HEMOGLOBIN 31.5 pg (27.0-33.0); MEAN CORPUSCULAR HGB CONC 30.9 g/dl (32.0-36.5); MEAN CORPUSCULAR VOLUME 101.8 fl (80.0-96.0); PLATELET COUNT, AUTOMATED 296 10^3/uL (150-450); RED BLOOD COUNT 3.84 10^6/uL (4.00-5.40); WHITE BLOOD COUNT 6.8 10^3/uL (4.0-10.0)
[2019-09-27 10:55] LABS: ALBUMIN 2.6 GM/DL (3.2-5.2); ALT/SGPT 9 U/L (12-78); BILIRUBIN,TOTAL 0.4 MG/DL (0.2-1.0); BLOOD UREA NITROGEN 25 MG/DL (7-18); CALCIUM LEVEL 8.9 MG/DL (8.8-10.2); CARBON DIOXIDE LEVEL 30 MEQ/L (21-32); CHLORIDE LEVEL 110 MEQ/L (98-107); CREATININE FOR GFR 0.65 MG/DL (0.55-1.30); GLOMERULAR FILTRATION RATE > 60.0 (>32); GLUCOSE, FASTING 68 MG/DL (70-100); NT-PRO BNP 1799 PG/ML (<450); POTASSIUM SERUM 3.9 MEQ/L (3.5-5.1); SODIUM LEVEL 148 MEQ/L (136-145); TOTAL PROTEIN 5.9 GM/DL (6.4-8.2)
== END ==
LOC: SKLAB7 03:45
PROVIDERS: ATTEND Family Medicine
DX: I50.20 Unspecified systolic (congestive) heart failure (principal)

== ENCOUNTER → 2019-10-08 | Outpatient (REF) | payer MEDICARE, MEDICAID ==
[2019-10-08 10:27] LABS: HEMATOCRIT 41.6 % (36.0-47.0); MEAN CORPUSCULAR HEMOGLOBIN 32.6 pg (27.0-33.0); MEAN CORPUSCULAR HGB CONC 31.3 g/dl (32.0-36.5); MEAN CORPUSCULAR VOLUME 104.3 fl (80.0-96.0); PLATELET COUNT, AUTOMATED 269 10^3/uL (150-450); RED BLOOD COUNT 3.99 10^6/uL (4.00-5.40)
[2019-10-08 10:55] LABS: BLOOD UREA NITROGEN 22 MG/DL (7-18); CALCIUM LEVEL 9.2 MG/DL (8.8-10.2); CARBON DIOXIDE LEVEL 27 MEQ/L (21-32); CHLORIDE LEVEL 112 MEQ/L (98-107); CREATININE FOR GFR 0.78 MG/DL (0.55-1.30); GLOMERULAR FILTRATION RATE > 60.0 (>32); GLUCOSE, FASTING 184 MG/DL (70-100); POTASSIUM SERUM 4.2 MEQ/L (3.5-5.1); SODIUM LEVEL 148 MEQ/L (136-145)
[2019-10-08 11:34] LABS: HEMOGLOBIN A1c 7.8 %
== END ==
LOC: SKLAB7 07:14
PROVIDERS: ATTEND Family Medicine
DX: E11.9 Type 2 diabetes mellitus without complications (principal)

== ENCOUNTER → 2019-10-25 | Outpatient (REF) | payer MEDICARE, MEDICAID ==
[~2019-10-25] MED LIST changes: +ASPI81CH32 PO; -ASPI81CH36 PO; +BISO5TAB14 PO; -BISO5TAB9 PO; -FENO48TA13 PO; +FENO48TA7 PO; -GLIM4TAB3 PO; +GLIM4TAB5 PO
== END ==
LOC: SKLAB7 09:45
PROVIDERS: ATTEND Family Medicine
DX: E03.9 Hypothyroidism, unspecified (principal)

== ENCOUNTER → 2019-11-22 | Outpatient (REF) | payer MEDICARE, MEDICAID | LOC: SKLAB7 13:54 | PROVIDERS: ATTEND Family Medicine | DX: E03.9 Hypothyroidism, unspecified (principal) ==

== ENCOUNTER → 2020-01-01 | Outpatient (REF) | payer MEDICARE, MEDICAID | LOC: SKLAB7 12:20 | PROVIDERS: ATTEND Family Medicine | DX: R05 Cough (principal); R09.89 Other specified symptoms and signs involving the circulatory and respiratory systems ==

== ENCOUNTER → 2020-01-17 | Outpatient (REF) | payer MEDICARE, MEDICAID ==
[2020-01-17 09:59] LABS: BLOOD UREA NITROGEN 21 MG/DL (7-18); CARBON DIOXIDE LEVEL 29 MEQ/L (21-32); CHLORIDE LEVEL 104 MEQ/L (98-107); GLOMERULAR FILTRATION RATE > 60.0 (>32); GLUCOSE, FASTING 257 MG/DL (70-100); MAGNESIUM LEVEL 1.6 MG/DL (1.8-2.4); SODIUM LEVEL 140 MEQ/L (136-145)
[2020-01-17 11:24] LABS: HEMOGLOBIN A1c 9.3 %
== END ==
LOC: SKLAB7 11:15
PROVIDERS: ATTEND Family Medicine
DX: E11.9 Type 2 diabetes mellitus without complications (principal); E61.2 Magnesium deficiency

== ENCOUNTER → 2020-02-14 | Outpatient (REF) | LOC: SKLAB7 09:25 | PROVIDERS: ATTEND Internal Medicine | DX: Z03.818 Encounter for observation for suspected exposure to other biological agents ruled out (principal) ==

== ENCOUNTER → 2020-04-17 | Outpatient (REF) | payer MEDICARE, MEDICAID ==
[~2020-04-17] MED LIST changes: -COUM1TAB14 PO; +COUM4TAB8 PO
== END ==
LOC: SKLAB7 07:00
DX: E11.9 Type 2 diabetes mellitus without complications (principal); D64.9 Anemia, unspecified

== ENCOUNTER → 2020-05-22 | Outpatient (REF) | payer MEDICARE, MEDICAID | LOC: SKLAB7 07:20 → M LAB 12:56 | DX: E03.9 Hypothyroidism, unspecified (principal) ==

== ENCOUNTER → 2020-05-28 | Outpatient (REF) | payer MEDICARE, MEDICAID ==
[2020-05-28 14:58] LABS: HEMOGLOBIN 11.5 g/dl (12.0-15.5); MEAN CORPUSCULAR HGB CONC 31.1 g/dl (32.0-36.5); MEAN CORPUSCULAR VOLUME 103.1 fl (80.0-96.0); PLATELET COUNT, AUTOMATED 291 10^3/uL (150-450); RED BLOOD COUNT 3.59 10^6/uL (4.00-5.40); WHITE BLOOD COUNT 8.8 10^3/uL (4.0-10.0)
[2020-05-28 15:11] LABS: BLOOD UREA NITROGEN 34 MG/DL (7-18); CALCIUM LEVEL 8.8 MG/DL (8.8-10.2); CARBON DIOXIDE LEVEL 25 MEQ/L (21-32); CHLORIDE LEVEL 104 MEQ/L (98-107); GLOMERULAR FILTRATION RATE > 60.0 (>32); GLUCOSE, FASTING 279 MG/DL (70-100); MAGNESIUM LEVEL 1.5 MG/DL (1.8-2.4); POTASSIUM SERUM 4.2 MEQ/L (3.5-5.1); SODIUM LEVEL 141 MEQ/L (136-145)
== END ==
LOC: SKLAB7 08:41
DX: E11.9 Type 2 diabetes mellitus without complications (principal); E03.9 Hypothyroidism, unspecified

== ENCOUNTER → 2020-06-19 | Outpatient (REF) | payer MEDICARE, MEDICAID ==
[2020-06-19 13:37] LABS: HEMATOCRIT 41.4 % (36.0-47.0); HEMOGLOBIN 12.6 g/dl (12.0-15.5); MEAN CORPUSCULAR HEMOGLOBIN 32.6 pg (27.0-33.0); MEAN CORPUSCULAR HGB CONC 30.4 g/dl (32.0-36.5); MEAN CORPUSCULAR VOLUME 107.3 fl (80.0-96.0); PLATELET COUNT, AUTOMATED 266 10^3/uL (150-450); RED BLOOD COUNT 3.86 10^6/uL (4.00-5.40); WHITE BLOOD COUNT 12.1 10^3/uL (4.0-10.0)
--- NOTE | 2020-06-19 13:56 | REPVR ---
PROCEDURE INFORMATION: Exam: XR Chest, 1 View Exam date and time: 06/19/2020 1:31 PM Age: 89 years old Clinical indication: Shortness of breath; Additional info: Resp distress TECHNIQUE: Imaging protocol: XR of the chest Views: 1 view. COMPARISON: CR Chest, 2 view PA, Lat 09/22/2019 11:23 AM FINDINGS: Lungs: Unremarkable. No consolidation. Pleural space: Unremarkable. No pleural effusion. No pneumothorax. Heart/Mediastinum: The heart is slightly enlarged on this portable exam. Bones/joints: Unremarkable. IMPRESSION: No acute findings. Electronically signed by: Sumanth Nelson On 06/19/2020 13:56:41 PM
[2020-06-19 14:08] LABS: ALBUMIN 2.7 GM/DL (3.2-5.2); BILIRUBIN,TOTAL 0.3 MG/DL (0.2-1.0); CALCIUM LEVEL 9.3 MG/DL (8.8-10.2); CREATININE FOR GFR 2.72 MG/DL (0.55-1.30); GLOMERULAR FILTRATION RATE 17.5 (>32); POTASSIUM SERUM 6.1 MEQ/L (3.5-5.1); TOTAL PROTEIN 6.4 GM/DL (6.4-8.2)
== END ==
LOC: SKLAB7 12:56
DX: R06.03 Acute respiratory distress (principal)

== ENCOUNTER → 2020-06-20 | Outpatient (REF) | payer MEDICARE, MEDICAID ==
[2020-06-20 15:03] LABS: HEMATOCRIT 41.7 % (36.0-47.0); HEMOGLOBIN 12.4 g/dl (12.0-15.5); MEAN CORPUSCULAR HGB CONC 29.7 g/dl (32.0-36.5); MEAN CORPUSCULAR VOLUME 107.8 fl (80.0-96.0); PLATELET COUNT, AUTOMATED 256 10^3/uL (150-450); RED BLOOD COUNT 3.87 10^6/uL (4.00-5.40); WHITE BLOOD COUNT 9.4 10^3/uL (4.0-10.0)
[2020-06-20 15:28] LABS: CALCIUM LEVEL 9.5 MG/DL (8.8-10.2); CREATININE FOR GFR 3.85 MG/DL (0.55-1.30); GLOMERULAR FILTRATION RATE 11.7 (>32); POTASSIUM SERUM 6.3 MEQ/L (3.5-5.1)
== END ==
LOC: SKLAB7 09:32
DX: R06.89 Other abnormalities of breathing (principal)